=== PATIENT | male | born 1930 | race Hispanic/Latino ===

== ENCOUNTER 2017-01-12 12:19 | Observation (INO) | payer OTHER ==
[~2017-01-12] VITALS: Ht 182.9 cm; Wt 95.3 kg
[2017-01-12] VITALS (7 sets, daily range): BP systolic 117–151; BP diastolic 64–82; TEMP 97.9–98.6; Ht 182.9 cm; Wt 95.3 kg
[2017-01-12 12:58] LABS: PLATELET COUNT 157 K/uL (142-355)
[2017-01-12] MEDS ORDERED: GABA400C2 PO (13:10)
[2017-01-12] MEDS ORDERED: SOMA350 MG PO (13:10)
[2017-01-12] MEDS ORDERED: POTASSIMIN75 MG OR (13:11)
[2017-01-12] MEDS ORDERED: FERROUS SULF324 MG PO (13:12)
[2017-01-12] MEDS ORDERED: FURO40TA93 PO (13:13)
[2017-01-12] MEDS ORDERED: [UNRECOGNIZED DRUG - CODE] OR (13:15)
[2017-01-12] MEDS ORDERED: CLOP75TA2 PO (13:16)
[2017-01-12] MEDS ORDERED: ROSUVASTATIN CA40 MG PO (13:18)
[2017-01-12] MEDS ORDERED: CARBTAB6 PO (13:18)
[2017-01-12] MEDS ORDERED: REMERON SOLTAB15 MG OR (13:20)
[2017-01-12] MEDS ORDERED: HEARTBURN150 MG OR (13:21)
[2017-01-12] MEDS ORDERED: ASPIR-8181 MG OR (13:21)
[2017-01-12] MEDS ORDERED: TRAM50TA PO (13:22)
[2017-01-12 13:23] LABS: POTASSIUM 3.4 mmol/L (3.6-5.2); SODIUM 137 mmol/L (136-145)
[2017-01-12 13:41] LABS: PARTIAL THROMBOPLASTIN TIME 19.6 SECONDS (24.5-33.6)
[2017-01-13 00:26] VITALS: BP 138/68; TEMP 98.7
[2017-01-13 04:00] VITALS: BP 96/66; TEMP 98.8
[2017-01-13 05:03] LABS: PLATELET COUNT 119 K/uL (142-355)
[2017-01-13 05:19] LABS: POTASSIUM 3.4 mmol/L (3.6-5.2); SODIUM 140 mmol/L (136-145)
[2017-01-13 08:00] VITALS: BP 121/70; TEMP 98.1
[2017-01-13 08:40] VITALS: BP 143/81; TEMP 97.8
[2017-01-13 12:14] VITALS: BP 109/72; TEMP 98.3
== END 2017-01-13 15:00 | disposition home or self-care (01) ==
LOC: ED 12:19 → MED/SURG 15:30
PROVIDERS: Family Medicine
DX: R07.89 Other chest pain (principal); R06.02 Shortness of breath
CPT/HCPCS: 36591; 80053; 82550; 84484; 85027; 85610; 85730; 93005; 94760; 96372; 96374; 96375; 99220; 99284; G0378; J1650

== ENCOUNTER 2017-02-26 14:45 | Emergency (ER) | payer OTHER ==
[~2017-02-26] VITALS: Ht 182.9 cm; Wt 90.7 kg
[~2017-02-26 14:45] MED LIST: ASPIR-8181 MG OR; CARBTAB6 PO; CLOP75TA2 PO; FERROUS SULF324 MG PO; FURO40TA93 PO; GABA400C2 PO; HEARTBURN150 MG OR; POTASSIMIN75 MG OR; REMERON SOLTAB15 MG OR; ROSUVASTATIN CA40 MG PO; SOMA350 MG PO; TRAM50TA PO; [UNRECOGNIZED DRUG - CODE] OR
[2017-02-26 14:55] VITALS: BP 130/83; TEMP 98
== END 2017-02-26 16:14 | disposition home or self-care (01) ==
LOC: ED 14:45
DX: S60.012A Contusion of left thumb without damage to nail, initial encounter (principal); W01.0XXA Fall on same level from slipping, tripping and stumbling without subsequent striking against object, initial encounter; Y92.098 Other place in other non-institutional residence as the place of occurrence of the external cause
CPT/HCPCS: 99282